=== PATIENT | female | born 1970 | race Two or more races ===

== ENCOUNTER → 2018-08-27 | Outpatient (CLI) | payer OTHER | END | disposition home or self-care (01) | LOC: MAMO-SONO 14:30 | DX: N64.89 Other specified disorders of breast (principal); Z12.31 Encounter for screening mammogram for malignant neoplasm of breast; Z87.898 Personal history of other specified conditions ==

== ENCOUNTER 2020-02-08 11:16 | Outpatient (CLI) | payer OTHER | END 2020-02-08 11:29 | disposition home or self-care (01) | LOC: RAD 11:16 | DX: R07.89 Other chest pain (principal) ==